=== PATIENT | female | born 1945 | race Caucasian/White ===

== ENCOUNTER 2020-08-08 07:58 | Emergency (ER) | payer MEDICARE, OTHER, SELFPAY ==
--- NOTE | 2020-08-08 08:01 | XRR_ITS ---
PROCEDURE INFORMATION: Exam: XR Chest Exam date and time: 08/08/2020 8:20 AM Age: 75 years old Clinical indication: Cough and shortness of breath; Prior surgery; Surgery type: Breast removal and replacement; Additional info: Dyspnea/cough TECHNIQUE: Imaging protocol: XR of the chest Views: 1 view. COMPARISON: CR Chest 1 [place] [id number] 09/03/2013 5:54 PM FINDINGS: Lungs: There are hazy interstitial densities consistent with chronic fibrosis. No acute pneumonia is seen. Pleural spaces: Unremarkable. No pleural effusion. No pneumothorax. Heart/Mediastinum: Unremarkable. No cardiomegaly. Bones/joints: Unremarkable. Soft tissues: Surgical clips are present in the left axilla. XR/XR chest 1V portable [id number] IMPRESSION: Mild interstitial pulmonary fibrosis. No acute chest abnormality.
[2020-08-08 08:04] VITALS: BP 195/87; PULSE 63; RESP 18; TEMP 36.7; O2SAT 95; BMI 29.8
[2020-08-08 08:20] LABS: Basophils % 0.6 %; Eosinophils # 0.1 10^3/uL (0.0-0.8); Eosinophils % 1.5 %; Hematocrit 39.6 % (37.0-47.0); Hemoglobin 12.2 g/dL (11.5-15.3); Lymphocytes # 0.7 10^3/uL (0.8-4.8); Mean Corpuscular HGB Conc 30.8 g/dL (30.0-36.0); Mean Corpuscular Hemoglobin 22.9 pg (28.0-34.0); Mean Corpuscular Volume 74.4 fL (81-99); Mean Platelet Volume 10.4 fL (7.4-10.4); Monocytes # 0.6 10^3/uL (0.2-0.9); Monocytes % 12.3 %; Neutrophils # 3.31 10^3/uL (1.8-7.7); Neutrophils % 71.4 %; Nucleated Red Blood Cells % 0 %; Platelet Count 246 10^3/cmm (130-400); Red Blood Count 5.32 10^6/uL (4.1-5.3); Red Cell Distribution Width 17.4 % (12.1-15.1); White Blood Count 4.6 10^3/uL (4.0-10.0)
[2020-08-08 08:21] VITALS: O2SAT 96
--- NOTE | 2020-08-08 08:37 | ED_ITS ---
HPI - SOB/Dyspnea General: Chief Complaint: Shortness of Breath/Dyspnea Stated Complaint: SOB Time Seen by Provider: 08/08/20 08:00 History of Present Illness: HPI Narrative: 77-year-old female comes in complaining of shortness of breath at home. She states she has a lot of postnasal drip and she cannot get it coughed up. She has a baseline mildly productive cough which is unchanged. She is not had any fever sweats or chills no anosmia and no diarrhea. She did have good results with albuterol. Although she is hesitant to take it because of someone I told her its not good for her heart. Oxygen saturations are 100%. MD elicited complaint: shortness of breath and cough Pertinent past history: COPD Onset (ago): hour(s) Timing: intermittent Severity: mild Exacerbating factors: exertion and coughing Relieving factors: rest and bronchodilators Associated symptoms: Deny abdominal pain, chest pain, fever(s), nausea, orthopnea or vomiting Review of Systems Const: Denies: fever(s), chills, body aches, change in appetite, fatigue or malaise ENMT: Denies: throat pain, ear or mastoid pain, nasal discharge or nasal congestion Card: Denies: chest pain, edema, dyspnea on exertion or orthopnea Resp: Denies: dyspnea, productive cough or non-productive cough GI: Denies: abdominal pain, nausea, vomiting, hematemesis, coffee ground emesis, diarrhea, constipation, bloating, hematochezia or melena : Denies: flank pain, difficulty voiding, dysuria, urinary frequency or urinary urgency Skin/Breast: Denies: rash or pruritus Physical Exam Const: COMMON NORMALS: no acute distress GENERAL APPEARANCE: cooperative and comfortable ORIENTATION/CONSCIOUSNESS: Yes awake, Yes oriented to person, Yes oriented to place and Yes oriented to time HENMT: COMMON NORMALS: normocephalic, atraumatic and hearing grossly normal bilaterally HEAD & SCALP: normocephalic and atraumatic Neck/C-Spine: COMMON NORMALS: no JVD Resp: AUSCULTATION: wheezes OTHER: Expiratory wheeze relieved by bronchodilators Cardio: COMMON NORMALS: no JVD, regular rate, regular rhythm and No murmurs present (Cardio) RATE: regular rate RHYTHM: regular rhythm GI: COMMON NORMALS: Soft to palpation and No hepatosplenomegaly present AUSCULTATION: Yes normoactive bowel sounds PALPATION: Yes Soft to palpation, No Tenderness to palpation present (GI), No Guarding due to palpation present (GI) and Yes No hepatosplenomegaly present Extremity: COMMON NORMALS: normal to inspection, capillary refill normal, no clubbing, cyanosis or edema, no calf tenderness and no pedal edema Neuro: SENSORIUM/ORIENTATION: Yes oriented to person, Yes oriented to place and Yes oriented to time Skin: COMMON NORMALS: no rashes or lesions noted GENERAL SKIN EXAM: no rashes or lesions noted Course Vital Signs: Vital signs: Vital Signs Temperature 98.1 F 08/08/20 08:04 Pulse Rate 57 L 08/08/20 12:07 Respiratory Rate 20 H 08/08/20 12:07 Blood Pressure 139/74 08/08/20 12:07 Pulse Oximetry 94 08/08/20 12:07 MDM - SOB/Dyspnea MDM Narrative: Medical decision making narrative: Patient markedly improved. She has no x-ray findings she is not had any fever sweats chills myalgias any diarrhea or anosmia. Treat her as a exacerbation of COPD see medications below follow-up with pulmonology. Lab Data: Labs: Lab Results 08/08/20 08/08/20 08/08/20 Range/Units 06:55 06:55 08:53 WBC 4.6 (4.0-10.0) 10^3/ uL RBC 5.32 H (4.1-5.3) 10^6/u L Hgb 12.2 (11.5-15.3) g/dL Hct 39.6 (37.0-47.0) % MCV 74.4 L (81-99) fL MCH 22.9 L (28.0-34.0) pg MCHC 30.8 (30.0-36.0) g/dL RDW 17.4 H (12.1-15.1) % Plt Count 246 (130-400) 10^3/c mm MPV 10.4 (7.4-10.4) fL Neut % (Auto) 71.4 % Lymph % (Auto) 14.0 % Mclennan % (Auto) 12.3 % Eos % (Auto) 1.5 % Baso % (Auto) 0.6 % Neut # (Auto) 3.31 (1.8-7.7) 10^3/u L Lymph # (Auto) 0.7 L (0.8-4.8) 10^3/u L Mclennan # (Auto) 0.6 (0.2-0.9) 10^3/u L Eos # (Auto) 0.1 (0.0-0.8) 10^3/u L Baso # (Auto) 0.0 (0.0-0.1) 10^3/u L Nucleated RBC % (a uto) 0 % Nucleated RBCs # 0.0 /100WBC Specimen Type Arterial Sample Site Brachial, right ABG pH 7.50 H (7.35-7.45) ABG pCO2 37.9 (35-45) mmHg ABG pO2 76.8 L (80.0-100.0) mmH g ABG HCO3 29.2 H (22-26) mmol/L ABG O2 Saturation 96.8 ABG Base Excess 5.7 H (-2.0-2.0) mmol/ L Dylan Test Pos A-a O2 Gradient 3.3 L (5-10) mmHg Hematocrit 35.9 L (37-47) % Hgb O2 Saturation 94.1 L (95-100) % Carboxyhemoglobin 2.0 (0.4-20.1) %THgb Methemoglobin 0.8 (0.4-1.5) % Total Hemoglobin 11.7 L (12-16) g/dL Ionized Calcium 1.2 (1.1-1.4) mmol/L O2 Delivery Device Room air Ballpoint Pen Cartridge Tester ID [id number] Sodium 139 139.0 (136-145) mmol/L Potassium 3.2 L 3.3 L (3.5-5.1) mmol/L Chloride 99 (98-107) mmol/L Carbon Dioxide 28 (22-29) mmol/L Anion Gap 15.2 (5-19) BUN 10 (8-23) mg/dL Creatinine 0.7 (0.5-0.9) mg/dL GFR Calculation Not Reportable Glucose 116 H 120.0 H (65-115) mg/dL Calculated Osmolal ity 288 (285-295) mOsm/k g Calcium 9.5 (8.5-10.5) mg/dL Total Bilirubin 0.4 (0.15-1.2) mg/dL AST 17 (0-32) U/L ALT 20 (0-33) U/L Alkaline Phosphata se 108 H (35-105) IU/L Total Protein 6.9 (6.6-8.7) g/dL Albumin 4.2 (3.5-5.2) g/dL Globulin 2.7 (1.3-4.6) g/dL Discharge Plan Discharge Patient Disposition: Home Clinical Impression: Acute exacerbation of chronic obstructive airways disease Condition: Stable Prescriptions: New doxycycline hyclate 100 mg capsule 100 mg PO BID 10 Days Qty: 20 RF: 0 Medrol (Milind) 4 mg tablets,dose pack See Rx Instructions .ROUTE .COMPLEX Qty: 21 RF: 0 albuterol sulfate 90 mcg/actuation HFA aerosol inhaler 2 inh INHALATION Q4H PRN (Reason: shortness of breath or wheezing) Qty: 18 RF: 0 ipratropium-albuterol 0.5 mg-3 mg(2.5 mg base)/3 mL solution for nebulization 3 ml inhalation Q4H PRN (Reason: shortness of breath or wheezing) Qty: 180 RF: 0 Spiriva Respimat 1.25 mcg/actuation mist 2 inh inhalation DAILY Qty: 4 RF: 0 No Action Aspir-81 81 mg Tablet,Delayed Release (Dr/Ec) 81 mg PO DAILY@06 RF: 0 Acidophilus Capsule 1 cap PO BID RF: 0 dicyclomine 10 mg capsule 10 mg PO BID@ RF: 0 PreserVision AREDS-2 250-90-40-1 mg Capsule 1 cap PO DAILY@06 RF: 0 Vitamin D3 1 cap PO DAILY@06 RF: 0 paroxetine HCl 10 mg tablet 10 mg PO DAILY@06 RF: 0 amiodarone 200 mg tablet 200 mg PO DAILY@06 RF: 0 potassium chloride 10 mEq tablet extended release 10 meq PO DAILY@06 RF: 0 tramadol 50 mg tablet 50 - 100 mg PO Q8H PRN (Reason: Pain) RF: 0 alprazolam 0.5 mg tablet 0.5 mg PO BEDTIME RF: 0 famotidine 20 mg tablet 20 mg PO BID@, RF: 0 cephalexin 500 mg capsule 500 mg PO BID@ RF: 0 pantoprazole 40 mg tablet,delayed release (DR/EC) 40 mg PO DAILY@06 RF: 0 hydrochlorothiazide 25 mg tablet 25 mg PO DAILY@06 RF: 0 mirtazapine 15 mg tablet 15 mg PO BEDTIME RF: 0 fluticasone propionate 50 mcg/actuation spray,suspension 2 spray INTRANASAL DAILY PRN (Reason: Allergy Symptoms) RF: 0 ipratropium bromide 21 mcg (0.03 %) spray,non-aerosol 2 spray INTRANASAL BID PRN (Reason: unknown) RF: 0 omega-3 acid ethyl esters 1 gram capsule 1 cap PO BID@,17 RF: 0 atorvastatin 40 mg tablet See Rx Instructions .ROUTE .COMPLEX RF: 0 baclofen 10 mg Tablet 5 - 10 mg PO BEDTIME PRN (Reason: Muscle Spasm) RF: 0 metoprolol succinate 25 mg Tablet Extended Release 24 Hr See Rx Instructions .ROUTE .COMPLEX RF: 0 azelastine 137 mcg (0.1 %) aerosol,spray 2 spray INTRANASAL BID RF: 0 Saline Nasal 0.65 % Aerosol,[place] 1 spray INTRANASAL PRN RF: 0 Discharge Orders: Discharge ED (Routine); Ordered 08/08/20 Ordered By: Davion Otto Referrals: Kristen Bergeron DO [Primary Care Provider] - Discharge Diet: Usual diet Discharge Activity: Increase activity as tolerated Patient Instructions: Opioid Safety Activity Restrictions/Additional Instructions: His management will call to make arrangements for you to see the supervisor compounding and finishing. Follow-up with your primary care doctor within the week return if you have worsening problems. Coding Level of Care Code ED Director Of Creative Services for Saira Loredo
[2020-08-08 08:48] LABS: Alanine Aminotransferase 20 U/L (0-33); Albumin Level 4.2 g/dL (3.5-5.2); Alkaline Phosphatase 108 IU/L (35-105); Anion Gap 15.2 (5-19); Aspartate Amino Transferase 17 U/L (0-32); Blood Urea Nitrogen 10 mg/dL (8-23); Calcium 9.5 mg/dL (8.5-10.5); Carbon Dioxide 28 mmol/L (22-29); Chloride 99 mmol/L (98-107); Globulin 2.7 g/dL (1.3-4.6); Glucose 116 mg/dL (65-115); Osmolality Calculated 288 mOsm/kg (285-295); Potassium 3.2 mmol/L (3.5-5.1); Sodium 139 mmol/L (136-145); Total Bilirubin 0.4 mg/dL (0.15-1.2); Total Protein 6.9 g/dL (6.6-8.7)
--- NOTE | 2020-08-08 08:48 | PC.PHAR ---
PT STATES SHE TAKES CARE OF HER OWN MEDICATIONS-PT STATES SHE TAKES METOPROLOL ER 12.5-25MG PO HS-[facility] STATES THEY LAST FILLED FEB 2019-PT STATES SHE IS UNSURE IF SHE IS TAKING LIPITOR MEDICATION WAS ON MED LIST PT BROUGHT IN [facility] LAST FILLED 01/2020-PT STATES SHE TAKES BOTH FAMOTIDINE AND PANTOPRAZOLE-
[2020-08-08 09:03] LABS: ABG PCO2 37.9 mmHg (35-45); Alveolar-Arterial Oxygen Gradi 3.3 mmHg (5-10); Arterial Blood Gas Hematocrit 35.9 % (37-47); Base Excess ABG 5.7 mmol/L (-2.0-2.0); Blood Gas Allen Test Pos; Blood Gas Sample Type Arterial; HCO3 ABG 29.2 mmol/L (22-26); HGB O2 Sat 94.1 % (95-100); Ionized Calcium Level - ABG 1.2 mmol/L (1.1-1.4); Methemoglobin 0.8 % (0.4-1.5); Oxygen Saturation ABG 96.8; PO2 ABG 76.8 mmHg (80.0-100.0); Potassium Level - ABG 3.3 mmol/L (3.5-5.0); Total Hemoglobin 11.7 g/dL (12-16)
[2020-08-08 09:04] LABS: Blood Gas Sample Site Brachial, right; Oxygen Device ROOM AIR
[2020-08-08] MEDS: ipratropium-albuterol 3 mL Neb INHALATION (10:07)
[2020-08-08 10:09] VITALS: PULSE 56; RESP 20; O2SAT 98
[2020-08-08 10:16] VITALS: PULSE 52
[2020-08-08 12:07] VITALS: BP 139/74; PULSE 57; RESP 20; O2SAT 94
--- NOTE | 2020-08-09 11:12 | DCPLANNER ---
Addendum entered by Delicia Hernandez 11/20/20 16:06: Patient had a follow up appointment scheduled for 08.30.[address] Streeter in [facility] - patient did attend appointment. Original Note: evs manager had message to schedule a follow up appointment for patient with pulomonogy at [facility]. evs manager called the [facility] clinic, spoke with Liz, gave clinic patients information. A follow up appointment was scheduled for Sunday, August 30, 2020 at 10:[address] Streeter at the [facility]. evs manager called [phone], unable to speak with patient at this time, a voicemail was left for patient with the appointment information.
== END 2020-08-08 12:13 | disposition home or self-care (01) ==
PROVIDERS: Emergency Provider Family Medicine; PCP Family Medicine
DX: J44.1 Chronic obstructive pulmonary disease with (acute) exacerbation (principal); Z79.82 Long term (current) use of aspirin
CPT/HCPCS: 36600; 71045; 80051; 80053; 82330; 82805; 85025; 94640; 96374; 96376; 99284; J2930

== ENCOUNTER → 2020-09-12 09:08 | Outpatient (BNVA) | payer MEDICARE, OTHER, SELFPAY | PROVIDERS: PCP Family Medicine; Visit Provider Internal Medicine Critical Care Medicine | DX: J44.9 Chronic obstructive pulmonary disease, unspecified (principal); Z20.822 Contact with and (suspected) exposure to COVID-19 | CPT/HCPCS: 87635 ==

== ENCOUNTER 2020-09-18 08:06 | Outpatient (CLI) | payer MEDICARE, OTHER, SELFPAY ==
--- NOTE | 2020-09-18 | CT_ITS ---
WS: [id number] LDCT LUNG CANCER SCREENING TECHNIQUE: Noncontrast CT of the chest with coronal and sagittal reformatted images. CLINICAL INFORMATION: COPD COMPARISON: None. DLP: 48.64 mGy.cm DIvol: 1.[address] scans at [facility] use at least one of these dose optimization techniques: automat ed exposure control; mA and/or kV adjustment per patient size (includes targeted exams where dose is matched to clinical indication); or iterative reconstruction. FINDINGS: Mild chronic emphysematous changes. Small subpleural nodule left lower lobe measuring 3 mm. Hazy interstitial infiltrates right upper lobe and right lower lobe may be infectious or inflammator y. Left lung is well aerated. No other suspicious pulmonary parenchymal opacities. Hypertrophic vance es thoracic spine. Left mastectomy with breast reconstruction. Small esophageal hiatal hernia. Adrenal glands are normal . 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 CT/CT lung screening [id number] IMPRESSION: LUNG-RADS: 2-Benign Appearance or Behavior FOLLOW UP: 12 Month: Continue annual screening with LDCT
--- NOTE | 2020-09-18 13:56 | PFTS_ITS ---
Date of Study:09/18/20 Date of Dictation: MECHANICS: Forced vital capacity (FVC) is reduced. Forced expiratory volume in one second (FEV1) is reduced. FEV1/FVC is normal. FLOW VOLUME LOOP: Mild scooping. LUNG VOLUMES: Total lung capacity (TLC) is reduced. Residual volume (RV) is reduced. DIFFUSING CAPACITY FOR CARBON MONOXIDE: Mild reduced. INTERPRETATION: The prebronchodilator spirometry is consistent with mild restriction. The lung volumes are suggestive of restrictive lung disease. Gas exchange (DLCO) is mildly reduced. MTDD
== END 2020-09-18 08:07 | disposition home or self-care (01) ==
LOC: RT 08:10
PROVIDERS: PCP Family Medicine; Visit Provider Internal Medicine Critical Care Medicine
DX: Z12.2 Encounter for screening for malignant neoplasm of respiratory organs (principal); J44.9 Chronic obstructive pulmonary disease, unspecified
CPT/HCPCS: 71271; 94010; 94726; 94729

== ENCOUNTER → 2023-07-16 10:04 | Outpatient (BNVA) | payer MEDICARE, OTHER, SELFPAY | PROVIDERS: PCP Family Medicine; Visit Provider Nurse Practitioner | DX: R50.9 Fever, unspecified (principal) | CPT/HCPCS: 87400 ==